=== PATIENT | female | born 1990 | race Caucasian/White ===

== ENCOUNTER → 2017-04-23 | Outpatient (CLI) | payer BC ==
[~2017-04-23] MED LIST: Augmentin 875-1 EACH PO; BIRTH CONTROL PO; CEPH500 PO; CRUTCH2 USE; Cheratussin AC118 ML PO; Cipro500 MG PO; ERYT.5TO OD; ERYT.5TO RIGHTEYE; Esgic Tablet1 EACH PO; HYDACE5 PO; IBUP600 PO; Keflex500 MG PO; MEDR150I; METO10 PO; MULVITMINE PO; NAPR500 PO; NUVA RING; Norco 5-325 Ta1 EACH PO; ONDA4ODT MM; OTC PAIN MEDS; OXYACE5T PO; PERM5TC TOP; PREN-16 PO; PROPRANOLOL; Polymyxin B-Tmp10 ML RIGHTEYE; Pyridium100 MG PO; RANI150 PO; SILSUL1TC TOP; SULTRIDS PO; SUMA25 PO; Sudogest30 MG PO; Ultram50 MG PO; Zofran Odt4 MG SL
[2017-04-25 16:09] LABS: HPV Genotype 16 Not Detected (NOTDET); HPV Genotype 18 Not Detected (NOTDET)
[2017-05-01 10:41] LABS: HPV High Risk Other Not Detected (NOTDET)
== END | disposition home or self-care (01) ==
LOC: LAB 12:17
PROVIDERS: Obstetrics & Gynecology
DX: N87.1 Moderate cervical dysplasia (principal)
CPT/HCPCS: 87624; 88142

== ENCOUNTER → 2017-05-22 | Outpatient (CLI) | payer BC ==
[~2017-05-22] MED LIST changes: -Keflex500 MG PO
[2017-05-22 17:48] LABS: BASOPHILS ABSOLUTE AUTO 0.05 K/mm3 (0.00-0.23); BASOPHILS PERCENT AUTO 1 % (0-2); EOSINOPHILS ABSOLUTE AUTO 0.31 K/mm3 (0.00-0.68); EOSINOPHILS PERCENT AUTO 4 % (0-6); Hematocrit 38.7 % (33.0-51.0); Hemoglobin 12.5 g/dL (11.5-16.0); IMMATURE GRAN ABSOLUTE AUTO 0.02 K/mm3 (0.00-0.10); IMMATURE GRAN PERCENT AUTO 0 % (0-1); LYMPHOCYTES ABSOLUTE AUTO 1.84 K/mm3 (0.84-5.20); LYMPHOCYTES PERCENT AUTO 24 % (21-46); MONOCYTES ABSOLUTE AUTO 0.59 K/mm3 (0.16-1.47); MONOCYTES PERCENT AUTO 8 % (4-13); Mean Corpuscular HGB Conc 32.3 g/dL (31.5-36.5); Mean Corpuscular Volume 87 fL (80-100); Mean Platelet Volume 10.7 fL (9.1-12.4); NEUTROPHILS ABSOLUTE AUTO 4.73 K/mm3 (1.96-9.15); NEUTROPHILS PERCENT AUTO 63 % (41-73); Platelet Count 250 K/mm3 (150-400); RDW Coefficient Variation 12.1 % (11.7-14.2); RDW Standard Deviation 38.8 fL (35.1-46.3); Red Blood Cell Count 4.46 M/mm3 (3.80-5.20); White Blood Cell Count 7.54 K/mm3 (4.00-11.30)
== END ==
LOC: LAB SHORT 15:30 → LAB 15:30
PROVIDERS: Obstetrics & Gynecology
DX: Z01.818 Encounter for other preprocedural examination (principal); Z30.09 Encounter for other general counseling and advice on contraception
CPT/HCPCS: 85025

== ENCOUNTER 2017-05-27 09:38 | Day surgery (SDC) | payer BC ==
[~2017-05-27] VITALS: Ht 162.6 cm; Wt 91.2 kg
[2017-08-18] MEDS ORDERED: Keflex500 MG PO (17:35)
== END 2017-05-27 23:01 | disposition home or self-care (01) ==
LOC: ORSCMMR 09:38
PROVIDERS: Obstetrics & Gynecology
PROC: 0UT74ZZ Resection of Bilateral Fallopian Tubes, Percutaneous Endoscopic Approach (ICD-10-PCS; principal; 2017-05-27 10:00)
DX: Z30.2 Encounter for sterilization (principal); Q50.5 Embryonic cyst of broad ligament; K21.9 Gastro-esophageal reflux disease without esophagitis; Z79.899 Other long term (current) drug therapy
CPT/HCPCS: 88302; J0171; J1100; J2250; J2405; J2710; J3010; J7120

== ENCOUNTER 2019-01-21 06:58 | Emergency (ER) | payer OTHER, BC ==
[~2019-01-21] VITALS: Ht 162.6 cm; Wt 90.7 kg
[~2019-01-21 06:58] MED LIST changes: +Keflex500 MG PO
[2019-01-21] MEDS ORDERED: OMEPRAZOLE20 MG PO (07:16)
[2019-01-21] MEDS ORDERED: Flonase 0.05% N16 GM (07:16)
[2019-01-21] MEDS ORDERED: IBUP800 PO (08:09)
[2019-01-21] MEDS ORDERED: Acetaminophen-1 EAC1 PO (08:09)
== END 2019-01-21 08:21 | disposition home or self-care (01) ==
LOC: ER 06:58
DX: S63.501A Unspecified sprain of right wrist, initial encounter (principal); S66.911A Strain of unspecified muscle, fascia and tendon at wrist and hand level, right hand, initial encounter; W10.9XXA Fall (on) (from) unspecified stairs and steps, initial encounter; Z79.899 Other long term (current) drug therapy
CPT/HCPCS: 29125; 73110; 99283-25

== ENCOUNTER → 2019-04-17 | Outpatient (CLI) | payer BC ==
[~2019-04-17] MED LIST changes: +Acetaminophen-1 EAC1 PO; +Flonase 0.05% N16 GM; +IBUP800 PO; +OMEPRAZOLE20 MG PO
[2019-04-18 12:44] LABS: Candida species (DNA Probe) Negative (NEGATIVE); G. vaginalis (DNA Probe) Positive (NEGATIVE); T. vaginalis (DNA Probe) Negative (NEGATIVE)
[2019-04-21 13:07] LABS: HPV 16 Negative (Negative); HPV 18 Negative (Negative); HPV OTHER HR TYPES Positive (Negative)
== END ==
LOC: LAB 11:27 → LAB SHORT 11:27
PROVIDERS: Advanced Practice Midwife
DX: Z01.419 Encounter for gynecological examination (general) (routine) without abnormal findings (principal); N76.0 Acute vaginitis
CPT/HCPCS: 87480; 87510; 87624; 87625; 87660; G0123

== ENCOUNTER 2020-04-30 21:15 | Emergency (ER) | payer BC ==
[~2020-04-30] VITALS: Ht 162.6 cm; Wt 92.5 kg
[~2020-04-30 21:15] MED LIST changes: +DOC250 PO
[2020-04-30] MEDS ORDERED: PROC5 PO (22:58)
[2020-04-30] MEDS ORDERED: IBU600 MG PO (22:58)
== END 2020-04-30 23:53 | disposition home or self-care (01) ==
LOC: ER 21:15
DX: G43.909 Migraine, unspecified, not intractable, without status migrainosus (principal)
CPT/HCPCS: 96372; 99283; J0780; J1885

== ENCOUNTER → 2021-03-03 | Outpatient (CLI) | payer BC ==
[~2021-03-03] MED LIST changes: +IBU600 MG PO; +PROC5 PO
[2021-03-04 13:31] LABS: Candida species (DNA Probe) Positive (NEGATIVE); G. vaginalis (DNA Probe) Positive (NEGATIVE); T. vaginalis (DNA Probe) Negative (NEGATIVE)
[2021-03-07 13:13] LABS: HPV 16 Negative (Negative); HPV 18 Negative (Negative); HPV OTHER HR TYPES Negative (Negative)
== END | disposition home or self-care (01) ==
LOC: LAB SHORT 11:12
PROVIDERS: Advanced Practice Midwife
DX: Z01.419 Encounter for gynecological examination (general) (routine) without abnormal findings (principal); N76.0 Acute vaginitis
CPT/HCPCS: 87480; 87510; 87624; 87660; G0123

== ENCOUNTER 2021-08-27 11:23 | Emergency (ER) | payer BC ==
[~2021-08-27] VITALS: Ht 162.6 cm; Wt 88.5 kg
[2021-08-27] MEDS ORDERED: METO10 PO (14:45)
== END 2021-08-27 15:37 | disposition home or self-care (01) ==
LOC: ER 11:23
DX: G43.909 Migraine, unspecified, not intractable, without status migrainosus (principal)
CPT/HCPCS: 96361; 96374; 96375; 99282-25; J1790; J1885; J2765; J7030

== ENCOUNTER 2022-01-22 12:51 | Day surgery (SDC) | payer BC ==
[~2022-01-22] VITALS: Ht 162.6 cm; Wt 84.5 kg
[2022-01-22] MEDS ORDERED: QULIPTA10 MG (13:03)
[2022-01-22] MEDS ORDERED: ACET325 (13:03)
[2022-01-22] MEDS ORDERED: OMEP20ER (13:03)
== END 2022-01-22 14:50 | disposition home or self-care (01) ==
LOC: ORSCSDS 12:51
PROVIDERS: Student in an Organized Health Care Education/Training Program
PROC: 0DBN8ZX Excision of Sigmoid Colon, Via Natural or Artificial Opening Endoscopic, Diagnostic (ICD-10-PCS; principal; 2022-01-22 14:15)
PROC: 0DBL8ZX Excision of Transverse Colon, Via Natural or Artificial Opening Endoscopic, Diagnostic (ICD-10-PCS; principal; 2022-01-22 14:15)
DX: K62.5 Hemorrhage of anus and rectum (principal); K63.89 Other specified diseases of intestine; K59.00 Constipation, unspecified; K64.4 Residual hemorrhoidal skin tags; K64.8 Other hemorrhoids; K21.9 Gastro-esophageal reflux disease without esophagitis; E66.9 Obesity, unspecified; Z68.34 Body mass index [BMI] 34.0-34.9, adult; Z79.899 Other long term (current) drug therapy
CPT/HCPCS: J2250; J2704; J7120

== ENCOUNTER → 2022-02-07 | Outpatient (CLI) | payer BC ==
[~2022-02-07] MED LIST changes: +ACET325; +OMEP20ER; +QULIPTA10 MG
[2022-02-08 10:05] LABS: Candida species (DNA Probe) Negative (NEGATIVE); G. vaginalis (DNA Probe) Negative (NEGATIVE); T. vaginalis (DNA Probe) Negative (NEGATIVE)
== END ==
LOC: LAB SHORT 16:30 → LAB 16:30
PROVIDERS: Registered Nurse Community Health
DX: N89.8 Other specified noninflammatory disorders of vagina (principal)
CPT/HCPCS: 87480; 87510; 87660

== ENCOUNTER → 2024-06-02 | Outpatient (CLI) | payer BC ==
[~2024-06-02] MED LIST changes: +PENVK500 PO
== END ==
LOC: LAB SHORT 19:06 → LAB 19:06
DX: R39.15 Urgency of urination (principal); N89.8 Other specified noninflammatory disorders of vagina
CPT/HCPCS: 87070; 87086; 87205

== ENCOUNTER → 2024-09-29 | Outpatient (CLI) | payer BC ==
[~2024-09-29] MED LIST changes: +B-12500 MC2 PO; +C COMPLEX1000 M1 PO; -OMEP20ER; +OMEP20ER PO; +VITAMIN D5000 UNIT PO; +VITAMIN K2100 MCG PO
[2024-09-29 11:06] LABS: BASOPHILS ABSOLUTE AUTO 0.04 K/mm3 (0.00-0.23); BASOPHILS PERCENT AUTO 1 % (0-2); EOSINOPHILS ABSOLUTE AUTO 0.21 K/mm3 (0.00-0.68); EOSINOPHILS PERCENT AUTO 4 % (0-6); Hematocrit 40.3 % (33.0-51.0); Hemoglobin 13.7 g/dL (11.5-16.0); IMMATURE GRAN ABSOLUTE AUTO 0.01 K/mm3 (0.00-0.10); IMMATURE GRAN PERCENT AUTO 0 % (0-1); LYMPHOCYTES ABSOLUTE AUTO 1.37 K/mm3 (0.84-5.20); LYMPHOCYTES PERCENT AUTO 28 % (21-46); MONOCYTES ABSOLUTE AUTO 0.43 K/mm3 (0.16-1.47); MONOCYTES PERCENT AUTO 9 % (4-13); Mean Corpuscular HGB Conc 34.0 g/dL (31.5-36.5); Mean Corpuscular Volume 86 fL (80-100); NEUTROPHILS ABSOLUTE AUTO 2.81 K/mm3 (1.96-9.15); NEUTROPHILS PERCENT AUTO 58 % (41-73); NRBC ABSOLUTE 0.00 K/mm3 (0.00-0.02); NRBC Auto 0.0 /100 WBC (0.0-0.2); Platelet Count 191 K/mm3 (150-400); RDW Coefficient Variation 12.5 % (11.7-14.2); RDW Standard Deviation 39.4 fL (35.1-46.3)
[2024-09-29 11:18] LABS: Alanine Aminotransfer (ALT/SGP 28.0 U/L (12-78); Albumin, Blood 3.9 g/dL (3.4-5.0); Albumin/Globulin Ratio 1.1 (0.8-1.8); Anion Gap 13.0 mmol/L (3-11); Aspartate Aminotrans (AST/SGOT 15.0 U/L (12-37); Bilirubin, Total 0.3 mg/dL (0.1-1.0); Blood Urea Nitrogen 10.0 mg/dL (8-24); CO2, Blood 24.0 mmol/L (21-32); Calcium, Blood 8.9 mg/dL (8.5-10.1); Chloride, Blood 105.0 mmol/L (98-108); Creatinine, Blood 0.83 mg/dL (0.40-1.00); Globulin, Blood 3.6 g/dL (2.2-4.0); Glucose, Blood 98.0 mg/dL (70-99); Potassium, Blood 3.9 mmol/L (3.5-5.5); Sodium, Blood 138.0 mmol/L (136-145); Total Protein, Blood 7.5 g/dL (6.4-8.2)
== END | disposition home or self-care (01) ==
LOC: LAB 11:03 → LAB SHORT 11:03
PROVIDERS: Physician Assistant Medical
DX: R00.2 Palpitations (principal)
CPT/HCPCS: 80053; 85025; 85379